=== PATIENT | female | born 1950 | race Caucasian/White ===

== ENCOUNTER 2021-11-14 23:40 | Emergency (ER) | payer MEDICARE ==
--- NOTE | 2021-11-15 01:33 | ED Fall/Injury ---
General Chief Complaint: General Problems/Pain Stated Complaint: FALL 11.09.21,PX ON LEFT SIDE & BACK,SOB Source: patient History of Present Illness Date Seen by Provider: Nov 15, 2021 Time Seen by Provider: 01:20 Initial Comments PT ARRIVES VIA POV FROM [facility] ON 11/09/21, SHE WAS WALKING OUT OF A HOUSE--WAS VISITING FAMILY IN [place], AND IT HAS 1 SHORT STEP, AND WAS STEPPING DOWN WITH HER "BAD RIGHT KNEE" AND LOST HER BALANCE AND FELL, LANDING ON HER LEFT SIDE, ONTO [employer]CRETE C/O PAIN TO LEFT CHEST/RIBS/ AND BACK C/O SHORTNESS OF BREATH NO NAUSEA/VOMITING OR ABDOMINAL PAIN NO URINARY SYMPTOMS OR CHANGE IN COLOR OF URINE NO CHANGE IN BOWEL HABITS NO PARESTHESIAS OR MOTOR DEFICITS DID NOT HIT HEAD AND NO LOSS OF CONSCIOUSNESS NO NECK PAIN HAS NOT TAKEN ANYTHING FOR PAIN HAS NOT SOUGHT CARE AT ANY TIME UNTIL TONIGHT SYMPTOMS NO DIFFERENT TONIGHT PT HAS HISTORY OF TX AND IS ON 81 MG ASPIRIN, NO OTHER BLOOD THINNERS PT HAS HAD COVID-19 VACCINE X 2--OVER A YEAR AGO, NO BOOSTER PT IS HERE VISITING FROM [place] Allergies and Home Medications Allergies Coded Allergies: No Known Drug Allergies (Unverified , 11/15/21) Patient Home Medication List Home Medication List Reviewed: Yes Cyclobenzaprine HCl (Cyclobenzaprine HCl) 10 Mg Tablet, 10 MG PO Q8H PRN for SPASMS Prescribed by: LEROY CARBAJAL on 11/15/21 0324 Naproxen (Naproxen) 500 Mg Tablet.dr, 500 MG PO BID Prescribed by: LEROY CARBAJAL on 11/15/21 0324 Review of Systems Review of Systems Constitutional: no symptoms reported Eyes: No Symptoms Reported Ears, Nose, Mouth, Throat: no symptoms reported Respiratory: see HPI Cardiovascular: see HPI Gastrointestinal: no symptoms reported Genitourinary: no symptoms reported Musculoskeletal: see HPI Skin: no symptoms reported Psychiatric/Neurological: No Symptoms Reported Past Hdtaitr-Enjydm-Tshhey Hx Patient Social History Tobacco Use?: Yes Tobacco type used: Cigarettes Smoking Status: Current Everyday Smoker Substance use?: No Alcohol Use?: No Past Medical History Surgeries: Yes (STENTS X 3) Cardiac, Coronary Stent, Gallbladder, Hysterectomy Respiratory: No Cardiac: Yes ([place] 2019--STENTS X 3) Coronary Artery Disease, Heart Attack, High Cholesterol, Hypertension Neurological: No REPLACER History: Hysterectomy, Menopausal Genitourinary: No Gastrointestinal: Yes (S/P CHOLECYSTECTOMY) Gall Bladder Disease Musculoskeletal: No Endocrine: No HEENT: No Cancer: No Psychosocial: No Integumentary: No Blood Disorders: No Physical Exam Vital Signs Vital Signs - First Documented Capillary Refill : Height, Weight, BMI Height: '" Weight: lbs. oz. kg; BMI Method: General Appearance: WD/WN, no apparent distress, other (REEKS OF CIGARETTES. DOES NOT APPEAR TO BE IN ANY DISCOMFORT OR DISTRESS) Neck: non-tender, full range of motion, supple, normal inspection Cardiovascular: regular rate, rhythm, no edema Respiratory: normal breath sounds, no respiratory distress, no accessory muscle use, other (DIFFUSE LEFT CHEST WALL TENDERNESS--ANTERIOR/LATERAL/POSTERIOR; NO EXTERNAL EVIDENCE OF TRAUMA, NO CREPITANCE, NO DEFORMITY OR SUB Q AIR. ) Gastrointestinal: normal bowel sounds, non tender, soft, no organomegaly, no pulsatile mass Back: no vertebral tenderness, CVA tenderness (L), decreased range of motion, other (DIFFUSE LEFT BACK TENDERNESS FROM LEFT SCAPULA TO ILIAC CREST. 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, no motor/sensory deficits, alert, normal mood/affect, oriented x 3 Skin: normal color, warm/dry; No ecchymosis; other (NO EXTERNAL EVIDENCE OF TRAUMA ANYWHERE) Cecile Coma Score Best Eye Response: (4) Open Spontaneously Best Verbal Response: (5) Oriented Best Motor Response: (6) Obeys Commands Cecile Total: 15 Progress/Results/Core Measures Results/Orders Lab Results Laboratory Tests Test 11/15/21 01:50 11/15/21 02:10 Range/Units Urine Color YELLOW Urine Clarity CLEAR Urine pH 5.5 5-9 Urine Specific [place] >=1.030 1.016-1.022 Urine Protein NEGATIVE NEGATIVE Urine Glucose (UA) NEGATIVE NEGATIVE Urine Ketones NEGATIVE NEGATIVE Urine Nitrite NEGATIVE NEGATIVE Urine Bilirubin NEGATIVE NEGATIVE Urine Urobilinogen 0.2 < = 1.0 MG/DL Urine Leukocyte Esterase NEGATIVE NEGATIVE Urine RBC (Auto) 1+ H NEGATIVE Urine RBC 0-2 /HPF Urine WBC NONE /HPF Urine Squamous Epithelial Cells 2-5 /HPF Urine Crystals NONE /LPF Urine Bacteria NEGATIVE /HPF Urine Casts NONE /LPF Urine Mucus LARGE H /LPF Urine Culture Indicated NO White Blood Count 17.9 H 4.3-11.0 10^3/uL Red Blood Count 5.29 H 3.80-5.11 10^6/uL Hemoglobin 16.0 11.5-16.0 g/dL Hematocrit 48 35-52 % Mean Corpuscular Volume 91 80-99 fL Mean Corpuscular Hemoglobin 30 25-34 pg Mean Corpuscular Hemoglobin Concent 33 32-36 g/dL Red Cell Distribution Width 12.4 10.0-14.5 % Platelet Count 233 130-400 10^3/uL Mean Platelet Volume 10.3 9.0-12.2 fL Immature Granulocyte % (Auto) 1 % Neutrophils (%) (Auto) 79 H 42-75 % Lymphocytes (%) (Auto) 12 12-44 % Monocytes (%) (Auto) 8 0-12 % Eosinophils (%) (Auto) 1 0-10 % Basophils (%) (Auto) 0 0-10 % Neutrophils # (Auto) 14.2 H 1.8-7.8 10^3/uL Lymphocytes # (Auto) 2.1 1.0-4.0 10^3/uL Monocytes # (Auto) 1.4 H 0.0-1.0 10^3/uL Eosinophils # (Auto) 0.1 0.0-0.3 10^3/uL Basophils # (Auto) 0.0 0.0-0.1 10^3/uL Immature Granulocyte # (Auto) 0.1 0.0-0.1 10^3/uL Neutrophils % (Manual) 83 % Lymphocytes % (Manual) 8 % Monocytes % (Manual) 6 % Band Neutrophils 3 % Blood Morphology Comment NORMAL Prothrombin Time 12.4 12.2-14.7 SEC INR Comment 0.9 0.8-1.4 Activated Partial Thromboplast Time 27 24-35 SEC Sodium Level 140 135-145 MMOL/L Potassium Level 3.4 L 3.6-5.0 MMOL/L Chloride Level 99 98-107 MMOL/L Carbon Dioxide Level 28 21-32 MMOL/L Anion Gap 13 5-14 MMOL/L Blood Urea Nitrogen 15 7-18 MG/DL Creatinine 0.82 0.60-1.30 MG/DL Estimat Glomerular Filtration Rate 76 BUN/Creatinine Ratio 18 Glucose Level 102 70-105 MG/DL Calcium Level 10.0 8.5-10.1 MG/DL Corrected Calcium 9.6 8.5-10.1 MG/DL Total Bilirubin 0.8 0.1-1.0 MG/DL Aspartate Amino Transf (AST/SGOT) 13 5-34 U/L Alanine Aminotransferase (ALT/SGPT) 12 0-55 U/L Alkaline Phosphatase 161 H 40-136 U/L Total Protein 7.9 6.4-8.2 GM/DL Albumin 4.5 3.2-4.5 GM/DL Amylase Level 43 25-125 U/L Lipase 30 8-78 U/L Serum Alcohol < 10 <10 MG/DL My Orders Orders - LEROY CARBAJAL DO Chest 1 View, Ap/Pa Only (11/15/21:27) Ct Chest/Abdomen/Pelvis Wo (11/15/21:27) Alcohol (11/15/21 01:33) Amylase (11/15/21:33) Cbc With Automated Diff (11/15/21:33) Comprehensive Metabolic Panel (11/15/21 01:33) Drug Screen Stat (Urine) (11/15/21 01:33) Lipase (11/15/21:33) Protime With Inr (11/15/21:33) Partial Thromboplastin Time (11/15/21:33) Ua Culture If Indicated (11/15/21:33) Monitor-Rhythm Ecg Trace Only (11/15/21 01:33) Manual Differential (11/15/21 02:10) Rx-Cyclobenzaprine Tablet (Rx-Flexeril T (11/15/21 03:24) Rx-Naproxen (Rx-Naprosyn) (11/15/21 03:24) Vital Signs/I&O 11/15/21 11/15/21 01:22 01:22 Temp 36.2 Pulse 63 Resp 20 B/P (MAP) 153/77 (102) Pulse Ox 97 O2 Delivery Room Air Room Air Progress Progress Note : Progress Note NO DETERIORATION IN PT'S CONDITION LAB UNABLE TO DO UDS Diagnostic Imaging Comments CXR--NO ACUTE PROCESS, PENDING RADIOLOGIST REVIEW CT CHEST/ABDOMEN/PELVIS--NO ACUTE PROCESS, PER [facility] VIA FAX AT 0203 Reviewed: Reviewed by Me Departure Impression Primary Impression: REPORTED FALL Additional Impression: LEFT CHEST AND FLANK PAIN Disposition: HOME, SELF-CARE Condition: Stable Departure-Patient Inst. Decision time for Depature: 03:23 Referrals: NO,LOCAL PHYSICIAN (PCP/Family) Primary Care Physician Patient Instructions: Blunt Chest Trauma (DC) Add. Discharge Instructions: ACTIVITIES TOLERATED FOLLOW UP WITH OF CHOICE IN 1 WEEK IF NO BETTER All discharge instructions reviewed with patient and/or family. Voiced understanding. Scripts Naproxen (Naproxen) 500 Mg Tablet. 500 MG PO BID, #20 TAB Prov: LEROY CARBAJAL DO 11/15/21 Cyclobenzaprine HCl (Cyclobenzaprine HCl) 10 Mg Tablet 10 MG PO Q8H PRN for SPASMS, #15 TAB 0 Refills Prov: LEROY CARBAJAL DO 11/15/21 LEROY CARBAJAL DO Nov 15, 2021 01:33
[2021-11-15 02:17] LABS: BASOPHILS % (AUTO) 0 % (0-10); EOSINOPHILS # (AUTO) 0.1 10^3/uL (0.0-0.3); EOSINOPHILS % (AUTO) 1 % (0-10); HEMATOCRIT 48 % (35-52); LYMPHOCYTES # (AUTO) 2.1 10^3/uL (1.0-4.0); LYMPHOCYTES % (AUTO) 12 % (12-44); MEAN CORPUSCULAR HEMOGLOBIN 30 pg (25-34); MEAN CORPUSCULAR HGB CONC 33 g/dL (32-36); MEAN CORPUSCULAR VOLUME 91 fL (80-99); MEAN PLATELET VOLUME 10.3 fL (9.0-12.2); MONOCYTES # (AUTO) 1.4 10^3/uL (0.0-1.0); MONOCYTES % (AUTO) 8 % (0-12); NEUTROPHILS # (AUTO) 14.2 10^3/uL (1.8-7.8); NEUTROPHILS % (AUTO) 79 % (42-75); PLATELET COUNT 233 10^3/uL (130-400); WHITE BLOOD COUNT 17.9 10^3/uL (4.3-11.0)
[2021-11-15 02:17] LABS: BILIRUBIN,URINE NEGATIVE (NEGATIVE); CLARITY,URINE CLEAR; COLOR,URINE YELLOW; GLUCOSE, URINE (UA) NEGATIVE (NEGATIVE); KETONES,URINE NEGATIVE (NEGATIVE); LEUKOCYTE ESTERASE ,URINE NEGATIVE (NEGATIVE); NITRITE,URINE NEGATIVE (NEGATIVE); PH,URINE 5.5 (5-9); PROTEIN,URINE NEGATIVE (NEGATIVE)
[2021-11-15 02:34] LABS: INR 0.9 (0.8-1.4); PROTHROMBIN TIME PATIENT 12.4 SEC (12.2-14.7)
[2021-11-15 02:35] LABS: BACTERIA,URINE NEGATIVE /HPF; RBC,URINE 0-2 /HPF
[2021-11-15 02:37] LABS: ALBUMIN 4.5 GM/DL (3.2-4.5); CHLORIDE 99 MMOL/L (98-107); POTASSIUM 3.4 MMOL/L (3.6-5.0); SODIUM 140 MMOL/L (135-145)
[2021-11-15 02:38] LABS: AMYLASE 43 U/L (25-125)
[2021-11-15 02:40] LABS: GLUCOSE 102 MG/DL (70-105); TOTAL PROTEIN 7.9 GM/DL (6.4-8.2)
[2021-11-15 02:41] LABS: BILIRUBIN,TOTAL 0.8 MG/DL (0.1-1.0); CARBON DIOXIDE 28 MMOL/L (21-32)
[2021-11-15 02:43] LABS: ALKALINE PHOSPHATASE 161 U/L (40-136); CREATININE SERUM 0.82 MG/DL (0.60-1.30); GFR ESTIMATED 76
[2021-11-15 02:44] LABS: BAND NEUTROPHILS 3 %; BUN/CREATININE RATIO 18; LYMPHOCYTES % (MANUAL) 8 %; MONOCYTES % (MANUAL) 6 %; NEUTROPHILS % (MANUAL) 83 %; RBC MORPH NORMAL
[2021-11-15 02:46] LABS: ALANINE AMINOTRANSFERASE 12 U/L (0-55)
[2021-11-15 02:47] LABS: LIPASE 30 U/L (8-78)
[2021-11-15] MEDS ORDERED: NAPR500T8 PO (03:24)
[2021-11-15] MEDS ORDERED: RX-CYCLOBENZAPRINE 10 MG (FLEXERIL) TAB PPK#3 PO STA (03:24)
[2021-11-15] MEDS ORDERED: CYCL10TA25 PO (03:24)
[2021-11-15] MEDS ORDERED: RX-NAPROXEN (NAPROSYN) 250 MG TAB PPK#4 PO STA (03:24)
[2021-11-15 03:34] VITALS: BP 139/68
--- NOTE | 2021-11-15 07:40 | Diagnostic Imaging Report ---
INDICATION: Fell this evening. Left-sided chest pain and rib pain. History of pain in the breast as well. EXAMINATION: Chest 11/15/2021. FINDINGS: Single view chest. Lungs are hyperinflated with coarsened markings chronic in appearance. The heart is unremarkable, pulmonary vasculature normal. No effusions. No infiltrates or pneumothorax. No acute osseous abnormality appreciated. IMPRESSION: 1. Chronic findings with no superimposed acute process. Dictated by: Dictated on workstation # [id number]
--- NOTE | 2021-11-15 08:19 | Diagnostic Imaging Report ---
EXAMINATION: CT chest, abdomen and pelvis without intravenous contrast. TECHNIQUE: Multiple contiguous axial images were obtained through the chest, abdomen and pelvis without intravenous contrast. All CT scans use one or more of the following dose optimizing techniques: automated exposure control, MA and/or KvP adjustment based on patient size and exam type or iterative reconstruction. HISTORY: Chest and abdomen injury COMPARISON: None available. FINDINGS: There is no edema or pneumonia. No pleural effusion. No pneumothorax. No suspicious nodules. Lungs are emphysematous. There is no axillary or supraclavicular lymphadenopathy. There is no mediastinal lymphadenopathy. Heart size is normal. There are severe coronary artery calcifications. No pericardial effusion. Aorta is normal in caliber. The liver is normal without focal lesion. There is no biliary ductal dilation. Gallbladder is absent. Pancreas is normal. Spleen is normal. Adrenal glands are normal. The kidneys are normal. There is no hydronephrosis. Urinary bladder is normal. Bowel is normal in caliber without obstruction or inflammation. No free fluid or air. No abdominal or pelvic lymphadenopathy. Aorta is normal in caliber without aneurysm. There are no suspicious osseus lesions. IMPRESSION: 1. No acute traumatic injury in the chest, abdomen or pelvis. Dictated by: Dictated on workstation # [id number]
[2021-11-15 10:56] LABS: AMPHETAMINE SCREEN, URINE NEGATIVE (NEGATIVE); BARBITURATE SCREEN URINE NEGATIVE (NEGATIVE); BENZODIAZEPINES SCREEN URINE NEGATIVE (NEGATIVE); CANNABINOID SCREEN, URINE NEGATIVE (NEGATIVE); COCAINE SCREEN URINE NEGATIVE (NEGATIVE); METHADONE STAT NEGATIVE (NEGATIVE); OPIATE SCREEN URINE NEGATIVE (NEGATIVE); OXYCODONE STAT NEGATIVE (NEGATIVE); PROPOXYPHENE STAT NEGATIVE (NEGATIVE); TRICYCLIC ANTIDEPRESSANTS SCRE NEGATIVE (NEGATIVE)
== END 2021-11-15 03:34 | disposition home or self-care (01) ==
LOC: ER 23:48
DX: R07.89 Other chest pain (principal); R10.9 Unspecified abdominal pain; I25.10 Atherosclerotic heart disease of native coronary artery without angina pectoris; I25.2 Old myocardial infarction; F17.210 Nicotine dependence, cigarettes, uncomplicated; Z95.5 Presence of coronary angioplasty implant and graft; Z90.49 Acquired absence of other specified parts of digestive tract; Z28.311 Partially vaccinated for COVID-19; Z79.82 Long term (current) use of aspirin; W01.0XXA Fall on same level from slipping, tripping and stumbling without subsequent striking against object, initial encounter
CPT/HCPCS: 71045; 71250; 74176; 80053; 80306; 81000; 82150; 83690; 85007; 85027; 85610; 85730; 93041; 99284; G0480; 36415; 80320